=== PATIENT | male | born 1995 | race African-American/Black ===

== ENCOUNTER 2021-06-14 14:12 | Emergency (ER) | payer OTHER ==
[~2021-06-14] VITALS: Ht 180.3 cm; Wt 91.0 kg
[2021-06-14] MEDS ORDERED: KETOROLAC 60MG/2ML VIAL IM ONE (16:00)
[2021-06-14 16:15] VITALS: BP_DIAS 67
[2021-06-14] MEDS ORDERED: NAPR-681 MT (16:59)
[2021-06-14 17:11] VITALS: BP_SYST 69
== END 2021-06-14 17:12 | disposition home or self-care (01) ==
LOC: ER 14:12
DX: S39.012A Strain of muscle, fascia and tendon of lower back, initial encounter (principal); S30.0XXA Contusion of lower back and pelvis, initial encounter; Z91.09 Other allergy status, other than to drugs and biological substances; V00.321A Fall from snow-skis, initial encounter; Y93.23 Activity, snow (alpine) (downhill) skiing, snowboarding, sledding, tobogganing and snow tubing; Y92.89 Other specified places as the place of occurrence of the external cause; Y99.8 Other external cause status
CPT/HCPCS: 72100; 96372; 99283; J1885